=== PATIENT | female | born 1980 | race Caucasian/White ===

== ENCOUNTER 2018-11-23 15:53 | Emergency (ER) | payer OTHER, SELFPAY ==
[2018-11-23 18:23] LABS: Absolute Lymphocytes (CBC) 1.3 K/uL (0.7-4.9); Absolute Monocytes 0.5 K/uL (0.1-1.3); Absolute Neutrophil 12.3 K/uL (1.8-8.0); Basophils % 0.4 % (0-1.3); Eosinophils % 0.2 % (0-4.4); Hematocrit 49.4 % (36.0-45.0); MPV 11.2 fL (7.6-11.3); Monocytes % 3.5 % (3.3-12.3); RBC Red Blood Cell Count 5.19 M/uL (3.86-4.86)
[2018-11-23] MEDS ORDERED: KETOROLAC 30 MG/ML INJ ONE (18:30)
[2018-11-23] MEDS ORDERED: NA CHLORIDE 0.9% 1,000 ML ONE (18:30)
[2018-11-23] MEDS ORDERED: ONDANSETRON 4 MG/2 ML VIAL ONE (18:32)
[2018-11-23 18:39] LABS: Albumin 4.4 g/dL (3.4-5.0); Bilirubin Direct 0.1 mg/dL (0-0.2); Bilirubin Total 0.3 mg/dL (0.2-1.0); Potassium 3.8 mmol/L (3.5-5.1); Protein, Total 8.3 g/dL (6.4-8.2)
[2018-11-23 18:55] LABS: Blood Morphology Comment NOT SEEN (NOT SEEN); Platelet Estimate ADEQ; Platelets, Giant NOTED; Urine White Blood Cell Casts OK
--- NOTE | 2018-11-23 19:07 | RAD REPORT ---
EXAM DESCRIPTION: US - Abdomen Exam Limited - 11/23/2018 6:02 pm CLINICAL HISTORY: Abdominal pain COMPARISON: Ultrasound March 2014 FINDINGS: Multiple large mobile gallstones are identified in the lumen measuring up to 2.3 cm in siz e. No measurable sludge. There is no wall thickening or pericholecystic fluid. Common bile duct is only partially visualized. No duct stone seen. No intrahepatic dilatation. IMPRESSION: Multiple large mobile gallstones. No acute gallbladder or biliary tree finding. Limited visualization of the common bile duct.
[2018-11-23] MEDS ORDERED: cloNIDine HCl 0.1 MG TAB ONE (19:09)
[2018-11-23 19:20] LABS: Urine Bacteria 20-50 /HPF (<20); Urine Culture Reflex Order REFLEXED
[2018-11-23 19:21] LABS: Urine Amorphous Sediment 1+ /HPF (NONE SEEN)
--- NOTE | 2018-11-23 19:41 | RAD REPORT ---
EXAM DESCRIPTION: CT - Abdomen Pelvis W Contrast - 11/23/2018 7:17 pm CLINICAL HISTORY: Abdominal pain, right upper quadrant pain COMPARISON: Abdomen ultrasound same date TECHNIQUE: Biphasic, helical CT imaging of the abdomen and pelvis was performed following 100 ml non -ionic IV contrast. Oral contrast was given. All CT scans are performed using dose optimization technique as appropriate and may include automated exposure control or mA/KV adjustment according to patient size. FINDINGS: No suspicious findings in the lung bases. The liver, spleen, and pancreas show no suspicious findings. Liver attenuation is borderline fatty in filtrated. Multiple large gallstones are present matching the ultrasound study. No active gallbladder process identifiable. Biliary tree within normal limits. Symmetric renal function is seen with no hydronephrosis or suspicious renal mass. No pyelonephritis o r acute parenchymal process. Mostly contracted urinary bladder shows no suspicious finding. Uterus an d ovaries also without suspicious finding. No adrenal abnormalities. No dilated bowel loops or bowel wall thickening. No appendicitis or other active GI process seen. No free air, free fluid or inflammatory stranding. No hernia, mass or bulky lymphadenopathy. No suspicious bony findings. IMPRESSION: Multi stone cholelithiasis is evident but no active gallbladder or biliary tree process evident on CT imaging. No acute or GI process. No acute DATA OPERATIONS LEADER finding.
[2018-11-23 19:45] LABS: Urine Blood 1+ (NEG); Urine Glucose NEGATIVE (NEG); Urine Protein NEGATIVE (NEG); Urine Specific Gravity >1.030 (1.005-1.030); Urine pH 5.5 (5.0-7.0)
--- NOTE | 2018-11-23 19:46 | EDPHYS ---
Physician Documentation [facility] Name: Norma Mansfield Age: 38 yrs Sex: Female : 1980 Arrival Date: 11/23/2018 Time: 15:55 Bed 23 Private MD: Xander Daugherty B ED Physician Amilcar Syed HPI: 11/23 17:57 This 38 yrs old Female presents to ER via Ambulatory with complaints of kb Abdominal Pain. 17:57 The patient presents with abdominal pain in the right upper quadrant. Onset: The kb symptoms/episode began/occurred today, at 12:00. The symptoms do not radiate. Associated signs and symptoms: none. The symptoms are described as constant, sharp. Modifying factors: The symptoms are alleviated by nothing, the symptoms are aggravated by nothing. Severity of pain: At its worst the pain was moderate in the emergency department the pain is unchanged. The patient has not experienced similar symptoms in the past. The patient has not recently seen a physician. Historical: - Allergies: 16:32 No Known Allergies; hb - Home Meds: 16:32 None [Active]; hb - PMHx: 16:32 None; hb - PSHx: 16:32 Tubal ligation; hb - Immunization history:: Adult Immunizations up to date. - Social history:: Smoking status: Patient/guardian denies using tobacco. - Ebola Screening: : No symptoms or risks identified at this time. ROS: 17:57 Constitutional: Negative for fever, chills, and weight loss, Cardiovascular: Negative kb for chest pain, palpitations, and edema, Respiratory: Negative for shortness of breath, cough, wheezing, and pleuritic chest pain, Back: Negative for injury and pain, : Negative for injury, bleeding, discharge, and swelling, MS/Extremity: Negative for injury and deformity, Skin: Negative for injury, rash, and discoloration, Neuro: Negative for headache, weakness, numbness, tingling, and seizure. 17:57 Abdomen/GI: Positive for abdominal pain, Negative for nausea, vomiting, and diarrhea, constipation, abdominal cramps, abdominal distension, anorexia. Exam: 17:57 Constitutional: This is a well developed, well nourished patient who is awake, alert, kb and in no acute distress. Head/Face: Normocephalic, atraumatic. Chest/axilla: Normal chest wall appearance and motion. Nontender with no deformity. No lesions are appreciated. Cardiovascular: Regular rate and rhythm with a normal S1 and S2. No gallops, murmurs, or rubs. Normal PMI, no JVD. No pulse deficits. Respiratory: Lungs have equal breath sounds bilaterally, clear to auscultation and percussion. No rales, rhonchi or wheezes noted. No increased work of breathing, no retractions or nasal flaring. Abdomen/GI: Soft, non-tender, with normal bowel sounds. No distension or tympany. No guarding or rebound. No evidence of tenderness throughout. Skin: Warm, dry with normal turgor. Normal color with no rashes, no lesions, and no evidence of cellulitis. MS/ Extremity: Pulses equal, no cyanosis. Neurovascular intact. Full, normal range of motion. Neuro: Awake and alert, GCS 15, oriented to person, place, time, and situation. Cranial nerves II-XII grossly intact. Motor strength 5/5 in all extremities. Sensory grossly intact. Cerebellar exam normal. Normal gait. Vital Signs: 16:31 BP 177 / 110; Pulse 95; Resp 16; Temp 97.8; Pulse Ox 98% on R/A; Pain 9/10; hb 19:00 BP 180 / 120; Pulse 74; Resp 16; Pulse Ox 98% on R/A; la1 19:52 BP 174 / 109; Pulse 90; Resp 16; Temp 98.3; Pulse Ox 98% ; lt1 MDM: 17:19 Patient medically screened. 17:58 Data reviewed: vital signs, nurses notes. Data interpreted: Pulse oximetry: on room air kb is 98 %. Interpretation: normal. 19:43 Counseling: I had a detailed discussion with the patient and/or guardian regarding: the kb historical points, exam findings, and any diagnostic results supporting the discharge/admit diagnosis, lab results, radiology results, the need for outpatient follow up, a general surgeon, to return to the emergency department if symptoms worsen or persist or if there are any questions or concerns that arise at home. 19:46 Special discussion: I have referred the patient to see his PCP for further evaluation kb of high blood pressure. 19:46 Counseling: I had a detailed discussion with the patient and/or guardian regarding: the kb presence of at least one elevated blood pressure reading (>120/80) during this emergency department visit. 11/23 16:03 Order name: Urine Microscopic Only; Complete Time: 19:26 snw 11/23 17:19 Order name: Basic Metabolic Panel; Complete Time: 18:40 kb 11/23 17:19 Order name: CBC with Diff; Complete Time: 18:56 kb 11/23 17:19 Order name: Hepatic Function; Complete Time: 18:40 kb 11/23 17:19 Order name: Lipase; Complete Time: 18:40 kb 11/23 18:21 Order name: Urine Dipstick--Ancillary (enter results); Complete Time: 19:46 em1 11/23 17:23 Order name: US Abdomen Limited; Complete Time: 19:09 kb 11/23 18:21 Order name: Urine --Ancillary (enter results); Complete Time: 19:46 em1 11/23 18:27 Order name: CBC Smear Scan; Complete Time: 18:56 EDMS 11/23 18:46 Order name: CT Abd/Pelvis - W/Contrast; Complete Time: 19:42 kb 11/23 19:22 Order name: Urine Culture EDDE 11/23 16:03 Order name: Urine Test (obtain specimen); Complete Time: 18:19 snw 11/23 16:03 Order name: Urine Dipstick-Ancillary (obtain specimen); Complete Time: 18:19 snw 11/23 17:19 Order name: IV Saline Lock; Complete Time: 18:13 kb 11/23 17:19 Order name: Labs collected and sent; Complete Time: 18:13 kb Administered Medications: 18:27 Drug: NS 0.9% 1000 ml Route: IV; Rate: 1000 ml; Site: right antecubital; la1 19:56 Follow up: IV Status: Completed infusion la1 18:27 Drug: TORadol 30 mg Route: IVP; Site: right antecubital; la1 19:33 Follow up: Response: No adverse reaction; Pain is decreased la1 18:27 Drug: Zofran 4 mg Route: IVP; Site: right antecubital; la1 19:33 Follow up: Response: No adverse reaction la1 19:00 Drug: cloNIDine 0.1 mg Route: PO; la1 19:33 Follow up: Response: No adverse reaction; Blood pressure is lowered la1 Disposition: 11/23/18 19:45 Discharged to Home. Impression: Cholelithiasis, Essential (primary) hypertension. - Condition is Stable. - Discharge Instructions: Cholelithiasis, Arkt-jm-Nexy, Hypertension, Amqh-wi-Icvn. - Prescriptions for Zofran 4 mg Oral Tablet - take 1 tablet by ORAL route every 6 hours As needed; 20 tablet. Diclofenac Sodium 75 mg Oral Tablet, Delayed Release (E.C.) - take 1 tablet by ORAL route 2 times per day As needed; 30 tablet. - Medication Reconciliation Form, Thank You Letter, Antibiotic Education, Prescription Opioid Use form. - Follow up: Emergency Department; When: As needed; Reason: Worsening of condition. Follow up: Private Physician; When: 2 - 3 days; Reason: Recheck today's complaints, Continuance of care, Re-evaluation by your physician. Addendum: 11/25/2018 07:10 Co-signature as Attending Physician, Amilcar Syed MD. r n Signatures: Dispatcher [employer] EDMS Erica Hassan, COLON THERAPIST-C COLON THERAPIST-Ckb Megan Roberts, COLON THERAPIST-C COLON THERAPIST-Csnw Amilcar Syed MD MD rn Attema, Lee, RN RN la1 Hayley Nielsen, RN RN Corrections: (The following items were deleted from the chart) 11/23 19:56 19:45 11/23/2018 19:45 Discharged to Home. Impression: Cholelithiasis; Essential la1 (primary) hypertension. Condition is Stable. Forms are Medication Reconciliation Form, Thank You Letter, Antibiotic Education, Prescription Opioid Use. Follow up: Emergency Department; When: As needed; Reason: Worsening of condition. Follow up: Private Physician; When: 2 - 3 days; Reason: Recheck today's complaints, Continuance of care, Re-evaluation by your physician. kb
--- NOTE | 2018-11-23 19:46 | ER ---
Nurse's Notes [facility] Name: Norma Mansfield Age: 38 yrs Sex: Female : 1980 Arrival Date: 11/23/2018 Time: 15:55 Bed 23 Private MD: Xander Daugherty B Diagnosis: Cholelithiasis;Essential (primary) hypertension Presentation: 11/23 16:30 Presenting complaint: RUQ pain and nausea since 1200 today. Transition of care: patient hb was not received from another setting of care. Onset of symptoms was November 23, 2018. Risk Assessment: Do you want to hurt yourself or someone else? Patient reports no desire to harm self or others. Care prior to arrival: None. 16:30 Method Of Arrival: Ambulatory hb 16:30 Acuity: ABHAY 3 hb 18:12 Initial Sepsis Screen: Does the patient meet any 2 criteria? No. Patient's initial la1 sepsis screen is negative. Does the patient have a suspected source of infection? No. Patient's initial sepsis screen is negative. Historical: - Allergies: 16:32 No Known Allergies; hb - Home Meds: 16:32 None [Active]; hb - PMHx: 16:32 None; hb - PSHx: 16:32 Tubal ligation; hb - Immunization history:: Adult Immunizations up to date. - Social history:: Smoking status: Patient/guardian denies using tobacco. - Ebola Screening: : No symptoms or risks identified at this time. Screenin:12 Abuse screen: Denies threats or abuse. Denies injuries from another. Nutritional la1 screening: No deficits noted. Tuberculosis screening: No symptoms or risk factors identified. Fall Risk None identified. Assessment: 18:11 General: Appears in no apparent distress. Behavior is calm, cooperative. Pain: la1 Complains of pain in right upper quadrant and left upper quadrant. Neuro: Level of Consciousness is awake, alert, obeys commands, Oriented to person, place, time, situation. Cardiovascular: Capillary refill < 3 seconds Patient's skin is warm and dry. Cardiovascular: Heart tones S1 S2 present. Respiratory: Airway is patent Respiratory effort is even, unlabored, Respiratory pattern is regular, symmetrical, Breath sounds are clear bilaterally. GI: Bowel sounds present X 4 quads. Abd is soft and non tender X 4 quads. Reports nausea. Vital Signs: 16:31 BP 177 / 110; Pulse 95; Resp 16; Temp 97.8; Pulse Ox 98% on R/A; Pain 9/10; hb 19:00 BP 180 / 120; Pulse 74; Resp 16; Pulse Ox 98% on R/A; la1 19:52 BP 174 / 109; Pulse 90; Resp 16; Temp 98.3; Pulse Ox 98% ; lt1 ED Course: 15:55 Patient arrived in ED. sb2 15:56 Xander Daugherty MD is Private Physician. sb2 16:31 Triage completed. hb 16:32 Arm band placed on left wrist. hb 17:09 Gus Julian, RN is Primary Nurse. la1 17:19 Erica [facility] F[facility]-C [facility]. kb 17:19 Amilcar Syed MD is Attending Physician. kb 17:59 Ultrasound completed. Patient tolerated well. sg3 18:03 US Abdomen Limited In Process Unspecified. EDMS 18:12 Call light in reach. Side rails up X 1. la1 18:12 No provider procedures requiring assistance completed. Inserted saline lock: 20 gauge la1 in right antecubital area, using aseptic technique. Blood collected. 19:17 CT Abd/Pelvis - W/Contrast In Process Unspecified. EDMS Administered Medications: 18:27 Drug: NS 0.9% 1000 ml Route: IV; Rate: 1000 ml; Site: right antecubital; la1 19:56 Follow up: IV Status: Completed infusion la1 18:27 Drug: TORadol 30 mg Route: IVP; Site: right antecubital; la1 19:33 Follow up: Response: No adverse reaction; Pain is decreased la1 18:27 Drug: Zofran 4 mg Route: IVP; Site: right antecubital; la1 19:33 Follow up: Response: No adverse reaction la1 19:00 Drug: cloNIDine 0.1 mg Route: PO; la1 19:33 Follow up: Response: No adverse reaction; Blood pressure is lowered la1 Outcome: 19:45 Discharge ordered by . kb 19:55 Discharged to home ambulatory. la1 19:55 Condition: stable 19:55 Discharge instructions given to patient, Instructed on discharge instructions, follow up and referral plans. medication usage, Demonstrated understanding of instructions, follow-up care, medications, Prescriptions given X 2. 19:56 Patient left the ED. la1 Signatures: Dispatcher [employer] EDMS Erica Hassan, FIBERGLASS PRODUCT TESTER-C FIBERGLASS PRODUCT TESTER-Ckb Gus Julian RN RN la1 Hayley Nielsen RN RN Sharri Ramos 3 Winter Sam 2 Vianey Segura 1
== END 2018-11-23 19:56 | disposition home or self-care (01) ==
LOC: ER 15:53
DX: K80.20 Calculus of gallbladder without cholecystitis without obstruction (principal); I10 Essential (primary) hypertension
CPT/HCPCS: 36415; 74177; 76705; 80048; 80076; 81003; 81015; 81025; 83690; 85025; 87086; 87088; 96361; 96374; 96375; 99284; J2405; J7030; Q9967

== ENCOUNTER 2018-12-08 08:43 | Day surgery (SDC) | payer OTHER ==
[2018-12-05 10:23] LABS: Absolute Lymphocytes (CBC) 1.8 K/uL (0.7-4.9); Absolute Monocytes 0.5 K/uL (0.1-1.3); Absolute Neutrophil 5.3 K/uL (1.8-8.0); Basophils % 0.9 % (0-1.3); Eosinophils % 1.2 % (0-4.4); Hematocrit 44.9 % (36.0-45.0); Lymphocytes % 23.7 % (15.3-44.8); MPV 11.4 fL (7.6-11.3); Monocytes % 6.5 % (3.3-12.3)
[2018-12-05 10:42] LABS: BUN Blood Urea Nitrogen 12 mg/dL (7-18); Bicarbonate 30 mmol/L (21-32); Glucose Level 90 mg/dL (74-106); Potassium 4.6 mmol/L (3.5-5.1); Sodium Level 139 mmol/L (136-145)
[2018-12-05 11:47] LABS: Bilirubin Direct 0.3 mg/dL (0-0.2); Bilirubin Total 0.5 mg/dL (0.2-1.0)
[2018-12-08] MEDS ORDERED: BUPIVACAINE 0.5% PF 10 ML VIAL ONE ×2 (09:16→10:52)
[2018-12-08] MEDS ORDERED: Ringers Lactate 1,000 ML IV ONE (09:25)
[2018-12-08] MEDS ORDERED: MIDAZOLAM HCL 2 MG/2 ML INJ ONE (09:41)
[2018-12-08] MEDS ORDERED: ROCURONIUM 50 MG/5 ML VIAL IV ONE (09:44)
[2018-12-08] MEDS ORDERED: FENTANYL CITR 100 MCG/2 ML ONE ×2 (09:44→10:44)
[2018-12-08] MEDS ORDERED: PROPOFOL 200 MG/20 ML VIAL IV ONE (09:44)
[2018-12-08] MEDS ORDERED: LIDOCAINE 2% MPF 5 ML VIAL ONE (09:44)
[2018-12-08] MEDS ORDERED: ONDANSETRON 4 MG/2 ML VIAL ONE (09:49)
[2018-12-08] MEDS: CEFOXITIN/SWI 1gm 1 GM/10 ML SYR ONE ×2 (09:55→10:00)
[2018-12-08] MEDS ORDERED: EPHEDRINE SULF 50 MG/10 ML SYR ONE (10:34)
[2018-12-08] MEDS ORDERED: GLYCOPYRROLATE 0.2 MG/ML SYR ONE ×2 (10:44→10:45)
--- NOTE | 2018-12-08 10:48 | P.BOP ---
Preoperative diagnosis: acute cholecystitis, symptomatic cholelithiasis Postoperative diagnosis: same Primary procedure: Laparoscopic cholecystectomy [employer] Certified Network Associate: Domi Adams (Lance) Estimated blood loss: <10cc Specimen: gb Findings: as above Anesthesia: General Complications: None Transferred to: Recovery Room Condition: Good
[2018-12-08] MEDS ORDERED: NEOSTIGMINE 1 MG/ML -10 ML VIAL ONE (10:52)
[2018-12-08] MEDS ORDERED: Mastisol Adhesive Liq ONE (10:55)
[2018-12-08] MEDS ORDERED: MORPHINE 4 MG/ML SYR ONE (11:28)
--- NOTE | 2018-12-08 22:05 | OP ---
Date of Procedure: 12/08/2018 Surgeon: Florentino Hansen MD Diagnosis: Acute cholecystitis, symptomatic cholelithiasis. Procedure: Laparoscopic cholecystectomy. Estimated Blood Loss: Less than 10 mL. Specimen: Gallbladder. Findings: As above. Complications: None. Indications: This is the case of a 38-year-old patient with the above diagnosis. Fully explained th e benefits, alternatives, and risks of laparoscopic, possible open cholecystectomy, which include but are not limited to infection, bleeding, damage to adjacent structures, anesthesia complication, chol edocholithiasis, bile leak, pancreatitis, DE, and even . She also understands this may not reli ash the symptoms. She might need more than one surgical intervention. She understood, signed a cons ent. Description Of Procedure: The patient was brought to the operating room, placed in supine position. A time-out was called. Abdominal area was prepped and draped in sterile fashion after anesthesia wa s induced. A small incision was made in the infraumbilical region. Incision was carried down to fas merissa, which was opened under direct vision. Peritoneum was encountered, opened under direct vision. Vicryl #1 placed inside the fascia. Marely trocar was carefully introduced. No bleeding was obtaine d. I proceeded to place 3 more trocars, 5 mm each one of them, in the epigastric and right upper jorge luis drant area under direct visualization. This allowed me to put a grasper in the fundus of the gallbla dder, another grasper in the infundibulum, retracting the gallbladder in the inferolateral fashion, e xposing the triangle of Calot. The cystic duct and cystic artery were clearly isolated, freed circum ferentially, and a connection between those and the gallbladder was clearly identified. I proceeded to ligate those by using at least 3 clips proximal, 1 clip distal. The same was done with the cystic artery. A small little branch of the cystic artery was also ligated after making sure the hepatic a rteries and common bile duct were protected. At that moment, the gallbladder was removed from the li brandyn using Bovie cauterizer and removed from the abdominal cavity using an EndoCatch through the umbil ical incision. The area was inspected once again. No bile leak. No bleeding. At that moment, I pr oceeded to remove the trocars under direct vision, deflated the pneumoperitoneum, closed the fascia w ith #1 Vicryl. Irrigated subcutaneous tissue, closed that with 3-0 chromic and skin in a subcuticula r fashion with 3-0 chromic, and Steri-Strips on top. Sponge count and instrument counts were correct . The patient tolerated the procedure well. The patient was sent to recovery in stable condition. Disposition: Home. Activity: As tolerated. No heavy lifting. Followup: Follow up in my office in 1 week. Call for appointment, [phone]. Keep the area dry for 48 hours, then may shower. Keep Steri-Strips intact. Medications: See orders. HM/MODL Voice ID: [id number] Report ID: [id number]
== END 2018-12-08 12:40 | disposition home or self-care (01) ==
LOC: OR 08:43
PROVIDERS: ATTEND Surgery
PROC: 0FT44ZZ Resection of Gallbladder, Percutaneous Endoscopic Approach (ICD-10-PCS; principal; 2018-12-08 10:30)
DX: K80.12 Calculus of gallbladder with acute and chronic cholecystitis without obstruction (principal); I10 Essential (primary) hypertension; Z88.2 Allergy status to sulfonamides; Z91.040 Latex allergy status; Z82.49 Family history of ischemic heart disease and other diseases of the circulatory system
CPT/HCPCS: 36415; 80048; 80076; 81025; 82150; 83690; 85025; 88304; J2250; J2405; J2704; J2710; J3010